=== PATIENT | female | born 1985 | race Caucasian/White ===

== ENCOUNTER 2023-02-28 19:30 | Emergency (ER) | payer OTHER ==
[~2023-02-28] VITALS: Ht 170.2 cm; Wt 102.1 kg
[~2023-02-28 19:30] MED LIST: IBUP800 PO; LABE100 PO; Verotin-Gr Cap1 EACH PO
[2023-02-28 19:39] VITALS: BP 145/84
[2023-02-28] MEDS ORDERED: AMPDEX10 (19:41)
[2023-02-28] MEDS ORDERED: TRAM50 PO (19:41)
== END 2023-02-28 21:20 | disposition home or self-care (01) ==
LOC: ER 19:30
DX: S93.402A Sprain of unspecified ligament of left ankle, initial encounter (principal); W18.09XA Striking against other object with subsequent fall, initial encounter; Z88.0 Allergy status to penicillin; Z88.2 Allergy status to sulfonamides; Z79.899 Other long term (current) drug therapy
CPT/HCPCS: 73610; 96374; 99283-25; J1885